=== PATIENT | male | born 1975 | race Caucasian/White ===

== ENCOUNTER 2017-03-20 21:10 | Emergency (ER) | payer OTHER ==
[~2017-03-20] VITALS: Ht 177.8 cm; Wt 113.4 kg
[~2017-03-20 21:10] MED LIST: AMOXICILLIN500 MG PO
[2017-03-20 21:25] VITALS: BP 151/82
--- NOTE | 2017-03-20 21:57 | ED UPPER/LOWER EXTREMITY COMPL ---
History of Present Illness General Chief Complaint: Lower Extremity Problems Stated Complaint: LEFT KNEE PAIN Source: patient, family Exam Limitations: no limitations Vital Signs & Intake/Output Vital Signs & Intake/Output Vital Signs Date Time Temp Pulse Resp B/P B/P Pulse O2 O2 Flow FiO2 Mean Ox Delivery Rate 03/20 2125 98.2 96 18 151/82 99 Room Air ED Intake and Output 03/21 0000 03/20 1200 Intake Total Output Total Balance Patient 250 lb Weight Weight Estimated Measurement Method Allergies Coded Allergies: tramadol (Severe, DIFFICULTY BREATHING 01/26/16) Reconcile Medications Amoxicillin 500 MG CAPSULE 1 TAB PO TID OTITIS MEDIA Triage Note: RECEIVED 41 YO MALE C/O LEFT KNEE SWELLING AND PAIN, STARTED TODAY. PT DOES NOT REMEMBER INJURING IT OR TRAUMA. PAIN INCREASES WITH WEIGHT BEARING AND TENDER TO TOUCH. L KNEE WARM TO TOUCH AND SWOLLEN Triage Nurses Notes Reviewed? yes HPI: 41 yo M presenting with atraumatic left knee pain. Starting this evening patient noticed swelling to left anterior knee, does not recall specific trauma or straining/spraining injury. Denies associated fevers or chills. Able to bear weight on left knee without significant pain. 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 (ARON HARPER,NITO) Past History Travel History Traveled to [place] past 21 day No Medical History Any Pertinent Medical History? none Neurological: NONE EENT: NONE Cardiovascular: NONE Respiratory: NONE Gastrointestinal: NONE Hepatic: NONE Renal: NONE Musculoskeletal: NAIL IN LEFT KNEE 6 MONTH AGO. Psychiatric: NONE Endocrine: NONE Blood Disorders: NONE Cancer(s): NONE Surgical History Surgical History: N Psychosocial History What is your primary language [place] Tobacco Use: Current Daily Use Daily Tobacco Use Amount/Type: => 5 Cigarettes daily Family History Hx Contributory? Yes (NITO SHARP MD) Review of Systems Review of Systems Constitutional: Reports: no symptoms. EENTM: Reports: no symptoms. Respiratory: Reports: no symptoms. Cardiovascular: Reports: no symptoms. Gastrointestinal/Abdominal: Reports: no symptoms. Genitourinary: Reports: no symptoms. Musculoskeletal: Reports: no symptoms. Skin: Reports: no symptoms. Neurological/Psychological: Reports: no symptoms. Hematologic/Endocrine: Reports: no symptoms. Immunological: Reports: no symptoms. All Other Systems: Reviewed and Negative (NITO SHARP MD) Physical Exam Physical Exam General Appearance: well developed/nourished, mild distress Head: atraumatic Eyes: Bilateral: PERRL, EOMI. Ears, Nose, Throat: normal pharynx, normal ENT inspection, hearing grossly normal Neck: normal inspection, supple Cardiovascular/Respiratory: regular rate/rhythm Back: normal inspection Skin: intact, normal color, warm/dry Comments: Left knee: Swelling of the prepatellar bursa without erythema or warmth, no appreciable tibiofemoral knee joint effusion, full range of motion left knee with minimal pain, no motor or sensory deficits, 2+ DP/PT pulses (NITO SHARP MD) Progress Differential Diagnosis: arterial insufficiency, cellulitis, CHF, compartment syndrome, contusion, dislocation, DVT, fracture, gout, septic arthritis, sprain, tendon injury Plan of Care: Orders Procedure Date/time Status XRY-KNEE COMPLETE LEFT 03/20 2120 Active Physician MDM: 41 yo M presenting with atraumatic left knee pain. VSS, afebrile, left knee exam as above. DDx: Prepatellar bursitis, less likely infected patellar bursa, low concern for septic arthritis, patellar fracture. Left knee x-ray showed prepatellar swelling without fracture or dislocation. Systematic management of prepatellar bursitis discussed with patient, declined pain medications and ED. Discharged with return precautions, plan to follow-up with orthopedics if necessary. (ARON HARPER,NITO) Departure Departure Disposition: HOME OR SELF CARE Condition: Stable Clinical Impression Primary Impression: Prepatellar bursitis of left knee Referrals: PHOENIX VALENTE MD Additional Instructions: Take Tylenol or ibuprofen as needed for pain. Rest, elevate, apply Alpesh wraps to the left knee to decrease swelling. Follow-up with Dr. Valente or another orthopedist if this becomes a recurrent problem. Return to the emergency department for any new, worsening, or concerning symptoms. Return to the emergency department for any signs of infection of the prepatellar bursa such as redness or fevers. Departure Forms: Customer Survey General Discharge Information (ARON HARPER,NITO) Resident Co-Sign Statement Statement: ED Attending supervision documentation- [] I saw and evaluated the patient. I have also reviewed all the pertinent lab results and diagnostic results. I agree with the findings and the plan of care as documented in the Resident's documentation. [X] I have reviewed the ED Record and agree with the Resident's documentation. [] Additions or exceptions (if any) to the Resident's note and plan are summarized below: [] (FRANCE HARPER,JAMAL Martinez)
--- NOTE | 2017-03-20 22:17 | RADIOLOGY REPORT ---
EXAMINATION: XR KNEE, LEFT CLINICAL INFORMATION: Pain. Rule out fracture. COMPARISON: None TECHNIQUE: Four views of the left knee. FINDINGS: No acute fracture or dislocation is seen. The articular surfaces are normal. There is prepatellar soft tissue thickening. No joint effusion is identified. A corticated ossicle adjacent to the lateral femoral condyle measuring 8 mm in size is likely chronic and may be posttraumatic in etiology. IMPRESSION: No acute osseous traumatic findings. Moderate prepatellar soft tissue swelling/thickening. If there is concern for a subtle patellar fracture, recommend correlation with a dedicated sunrise view targeting the patellofemoral articulation. However, a joint effusion would be more likely expected in the setting of a patellar fracture. Correlate with physical exam findings.
== END 2017-03-20 22:48 ==
LOC: ERH 21:10
DX: M70.42 Prepatellar bursitis, left knee (principal)
CPT/HCPCS: 73562-LT